=== PATIENT | female | born 2000 | race Two or more races ===

== ENCOUNTER 2023-12-23 03:47 | Emergency (ER) | payer OTHER ==
[~2023-12-23] VITALS: Ht 152.4 cm; Wt 47.6 kg
[2023-12-23] MEDS ORDERED: IBUPROFEN 400 MG TABLET ONE (04:21)
[2023-12-23] MEDS: IBUPROFEN 400 MG TABLET PO ONE (04:23)
[2023-12-23 04:27] LABS: APPEARANCE,URINE CLOUDY (CLEAR); BILIRUBIN,URINE NEGATIVE (NEGATIVE); BLOOD, URINE 3+ Ery/uL (NEGATIVE); COLOR,URINE YELLOW (YELLOW); KETONES,URINE NEGATIVE (NEGATIVE); LEUKOCYTE ESTERASE ,URINE 2+ (NEGATIVE); NITRITE, URINE POSITIVE (NEGATIVE); PH,URINE 6.5 (5.0-8.0); PROTEIN,URINE 2+ mg/dl (NEGATIVE); UGLUCOSE NEGATIVE (NEGATIVE); UROBILINOGEN,URINE 0.2 EU/dL (0.2)
[2023-12-23 04:29] LABS: PREGNANCY TEST URINE QUAL NEGATIVE (NEGATIVE)
[2023-12-23] MEDS ORDERED: NITR100C6 PO (04:31)
[2023-12-23] MEDS ORDERED: NITROFURANTOIN/MONOHYDRATE MACROCRYSTALS 100 MG CAPSULE ONE (04:36)
[2023-12-23] MEDS: NITROFURANTOIN/MONOHYDRATE MACROCRYSTALS 100 MG CAPSULE PO ONE (04:40)
[2023-12-23 04:42] VITALS: BP 111/60; TEMP 98.8; O2SAT 99
[2023-12-23 05:27] LABS: ADD URINE CULTURE YES; BACTERIA,URINE 3+ /HPF (None Seen); RBC,URINE 51-80 /HPF (0-2); WBC,URINE TOO NUMEROUS TO COUN /HPF (0-3)
[2023-12-23 05:28] LABS: MUCUS,URINE Moderate /LPF (None Seen)
== END 2023-12-23 04:43 | disposition home or self-care (01) ==
LOC: ER 03:53
DX: N39.0 Urinary tract infection, site not specified (principal); M54.89 Other dorsalgia
CPT/HCPCS: 81001; 84703-TC; 87086-TC

== ENCOUNTER 2024-01-03 18:00 | Emergency (ER) | payer OTHER ==
[~2024-01-03] VITALS: Ht 152.4 cm; Wt 47.6 kg
[~2024-01-03 18:00] MED LIST: NITR100C6 PO
[2024-01-03 18:54] LABS: APPEARANCE,URINE Clear (CLEAR); BILIRUBIN,URINE Negative (NEGATIVE); BLOOD, URINE Small Ery/uL (NEGATIVE); COLOR,URINE YELLOW (YELLOW); KETONES,URINE Negative (NEGATIVE); LEUKOCYTE ESTERASE ,URINE Moderate (NEGATIVE); NITRITE, URINE Negative (NEGATIVE); PROTEIN,URINE Negative (NEGATIVE); UGLUCOSE Negative (NEGATIVE); UROBILINOGEN,URINE 0.2 EU/dL (0.2)
[2024-01-03 18:55] LABS: ADD URINE CULTURE YES; BACTERIA,URINE Few /HPF (None Seen); SQUAMOUS EPITHELIAL CELL,UR Few /HPF (None Seen)
[2024-01-03] MEDS ORDERED: KETOROLAC TROMETHAMINE 15 MG/ML VIAL ONE (19:20)
[2024-01-03 19:21] LABS: BASOPHILS # (AUTO) 0.1 K/uL (0.0-0.2); BASOPHILS % (AUTO) 0.3 % (0.0-2.0); EOSINOPHILS % (AUTO) 0.1 % (0.0-6.0); HEMATOCRIT 37 % (33-45); LYMPHOCYTES # (AUTO) 1.3 K/uL (0.8-4.8); LYMPHOCYTES % (AUTO) 6.7 % (20.0-44.0); MEAN CORPUSCULAR HEMOGLOBIN 29 PG (26.0-33.0); MEAN CORPUSCULAR HGB CONC 33 g/dl (31.0-36.0); MEAN CORPUSCULAR VOLUME 88 fL (82-100); MONOCYTES # (AUTO) 1.2 K/uL (0.1-1.30); MONOCYTES % (AUTO) 6.1 % (2.0-12.0); NEUTROPHILS % (AUTO) 86.8 % (43.0-81.0); PLATELET COUNT (AUTO) 425 K/uL (150-450); RED BLOOD CELL COUNT(AUTO) 4.14 MIL/uL (4.0-5.2); RED CELL DISTRIBUTION WIDTH 14.2 % (11.5-15.0); WHITE BLOOD COUNT (AUTO) 19.6 K/uL (4.3-11.0)
[2024-01-03] MEDS: IV NS 0.9% 1,000 ML BAG IV ONE (19:21)
[2024-01-03] MEDS: KETOROLAC TROMETHAMINE 15 MG/ML VIAL IV ONE (19:22)
[2024-01-03 19:32] LABS: CALCIUM, SERUM 9.2 mg/dL (8.5-10.1); CREATININE 0.9 mg/dL (0.6-1.3); POTASSIUM 3.4 mmol/L (3.5-5.1)
[2024-01-03 19:37] LABS: ALBUMIN 3.5 g/dL (3.4-5.0); BILIRUBIN,DIRECT 0.1 mg/dL (0.0-0.2); BILIRUBIN,TOTAL 0.6 mg/dL (0.2-1.0)
[2024-01-03] MEDS ORDERED: CEFTRIAXONE 1GM BAG (ER ONLY) 50 ML IV ONE (20:28)
[2024-01-03] MEDS: CEFTRIAXONE 1GM BAG (ER ONLY) 1 GM/50 ML PIGGYBACK IV ONE (20:28)
[2024-01-03] MEDS ORDERED: CEFD300C3 PO (20:52)
[2024-01-03 21:43] VITALS: BP 112/70; TEMP 98.7; O2SAT 97
== END 2024-01-03 21:44 | disposition home or self-care (01) ==
LOC: ER 18:45
DX: N12 Tubulo-interstitial nephritis, not specified as acute or chronic (principal); R39.15 Urgency of urination; R30.0 Dysuria
CPT/HCPCS: 99284; 96365; 96361; 96375; 85025; 80048; 80076; 81001; 36415; J7030; J0696; J1885